=== PATIENT | female | born 2005 | race Caucasian/White ===

== ENCOUNTER 2023-08-11 16:22 | Emergency (ER) | payer BC, SELFPAY ==
[2023-08-11 16:28] VITALS: BP 143/98
[2023-08-11 16:43] LABS: % Basophils 0.8 % (0-2); % Eosinophils 2.2 % (0-6); % Immature Granulocytes 0.3 % (0-0.5); % Lymphocytes 37.7 % (20.5-51.1); % Monocytes 6.4 % (1.7-9.3); % Neutrophils 52.6 % (42.2-75.2); Absolute Basophils 0.1 10^3/uL (0-0.2); Absolute Eosinophils 0.2 10^3/uL (0-0.7); Absolute Lymphocytes 3.3 10^3/uL (1.2-3.4); Absolute Monocytes 0.6 10^3/uL (0.1-0.6); Absolute Neutrophils 4.6 10^3/uL (1.4-6.5); Hemoglobin 13.4 g/dL (12.0-16.0); Mean Corp Hgb Conc. 34.4 g/dL (33.0-37.0); Mean Corpuscular Hgb 28.4 pg (27.0-31.0); Mean Corpuscular Volume 82.6 fL (81.0-99.0); Mean Platelet Volume 8.6 fL (7.4-10.4); Nucleated Red Blood Cells % 0 %; Platelet Count 347 10^3/uL (130-400); Red Blood Cell Count 4.72 10^6/uL (4.20-5.40); White Blood Cell Count 8.8 10^3/uL (4.8-10.8)
[2023-08-11 16:54] LABS: HCG, Serum Qualitative Screen Negative
[2023-08-11 17:20] LABS: ALT (SGPT) 13 U/L (0-35); AST (SGOT) 20 U/L (14-36); Albumin 4.5 g/dl (3.5-5.0); Alkaline Phosphatase 55 U/L (38-126); Blood Urea Nitrogen 10 mg/dl (7-17); Calcium 9.7 mg/dl (8.4-10.2); Carbon Dioxide 26 mmol/L (22-30); Chloride 102 mmol/L (98-107); Glucose 98 mg/dl (70-99); Potassium 4.5 mmol/L (3.5-5.1); Sodium 138 mmol/L (135-145); Total Bilirubin 0.7 mg/dl (0.2-1.3); Total Protein 7.5 g/dl (6.3-8.2); eGFR > 60.00
[2023-08-11 20:09] VITALS: BP 126/88
--- NOTE | 2023-08-11 20:56 | ED.GENMED ---
History of Present Illness
General
Chief Complaint: Weakness
Source: patient and family
Time Seen by Provider: 08/11/23 20:04
Travel History
Have you had any contact with someone who has COVID-19?: No
Do you have any symptoms of coronavirus? Fever > 100 degrees, chills, cough, shortness of breath, sore throat, loss of taste or smell, muscle aches, or headache?: No
History of Present Illness
History of Present Illness:
This patient is a 17-year-old female with a very complex prior medical history. 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 She had an occipital to C3 fusion decompression in November in [place]. Then, by April, she was
noticing that she was having intense 'burning in the inner aspect of her bilateral arms with activity associated with discomfort in thenar eminence while writing. She has had an extensive workup regarding this including EMG, revisit with her
surgeon, etc. without a specific etiology noted at this time. Patient has a variety of other somewhat subacute/chronic symptoms including upper back pain noted only while upright. Yesterday however she noted leg discomfort described as a 'achy'
pain specifically in her bilateral hip knees and ankles. This is not associated with bowel or bladder incontinence perianal anesthesia, numbness, tingling, weakness, fever, chills, nausea, vomiting, falls, chest pain, dyspnea, or other complaints.
She feels that the symptoms are only present when she tries to stand or walk, and she feels better when she sits down.
Past History
Past History
ED Past Medical History: Other (EDS)
ED Past Surgical History: Orthopedic
Social History
Tobacco: Non-smoker
Alcohol: None
Drug: None
Personal: Single
Living: with family
Phy Exam
Physical Exam
Physical Exam:
GENERAL: Alert , in no apparent distress, very pleasant
EYE: pupils equal and reactive
NECK: Supple, no significant adenopathy, midline incision well-healed.
ENT: o/p clr, mmm, voice clear.
CARDIAC: Regular rate and rhythm .
LUNGS: Clear breath sounds bilaterally, no acute respiratory distress, no wheezes/rales/rhonchi
ABDOMEN: Soft, without focal tenderness, no r/g, no cvat
NEUROLOGICAL: Alert and oriented, no focal neuro deficits, 2+ patellar reflexes, normal gait, motor 5 out of 5, sensory intact to light touch
SKIN: Warm and dry, skin intact.
MUSCULOSKELETAL: No edema, well perfused. Lower extremity joints without redness swelling tenderness to palpation or other abnormalities
PSYCH: Normal and appropriate interaction.
Course
Orders/Labs/Results
Orders:
Orders
08/11/23 16:32
Test Result ONCE
08/11/23 16:38
Complete Blood Count/With Diff Urgent
Comprehensive Metabolic Panel Urgent
HCG, Serum Qualitative Screen Urgent
08/11/23 20:46
CT Cervical Spine W/o Iv Contr Urgent
Comment:
Reason For Exam: hx spinal surgery
08/11/23 21:16
CR Thoracic Spine 3 Views Urgent
Reason For Exam: eds, pain
08/11/23 21:42
CR Chest - 2 Views Urgent
Comment:
Reason For Exam: PAIN
Abnormal Lab Results
08/11/23
16:38
Creatinine 0.5 L mg/dL
(0.6-1.0)
08/11/23 16:38
08/11/23 16:38
Vital Signs
Initial and Last Documented VS:
Initial Vital Signs
Pulse Resp BP Pulse Ox
110 16 143/98 98
08/11/23 16:28 08/11/23 16:28 08/11/23 16:28 08/11/23 16:28
Last Documented Vital Signs
Pulse Resp BP Pulse Ox
83 23 106/72 98
08/12/23 00:03 08/11/23 20:30 08/12/23 00:03 08/12/23 00:03
*Critical Care Note
Total Time (30-74mins, 75-104mins- exclusive of procedures): Not Applicable
Update Note
Update Note:
Patient presents to the Emergency Department with ____bilateral lower extremity joint pain
Number and Complexity of Problems Addressed at the Encounter
� Chronic conditions affecting care:
� Acute Exacerbation and/or Progression of Chronic Illness:
� Differential Diagnosis includes: But not limited to infectious arthritis, inflammatory arthritis, spinal injury, etc.
Amount and/or Complexity of Data to be Reviewed and Analyzed
� I performed an independent evaluation of and my interpretation is:
EKG:
CT: Unremarkable, incidental thyroid nodule patient and mother already aware
Xrays: T-spine and chest x-ray unremarkable
Laboratory Studies: Unremarkable
Other:
� Review of other/old records reveals:
� Clinical information was obtained by an independent historian: Mother who is at bedside
� Prescriptions/Medications Considered but not given:
� Further testing considered but not performed:
Risk of Complications and/or Morbidity or Mortality of Patient Management
� Social determinants of health affecting care:
� Discussion with other providers (PCP, Hospitalists, Consultants, etc):
� Escalation of care including admission/observation vs risk of discharge considered: 8:59 PM Case discussed with Dr. Bennett the ED, patient well-known to him and he referred patient to the ER. He was very reassured to learn that
patient does not exhibit numbness, tingling, focal weakness, and reflexes are normal. Her joints do not have signs or symptoms to suggest infection such as redness, swelling, tenderness to palpation, etc. Labs are normal here. We mutually agree
that a CAT scan of the cervical spine will be helpful in ruling out other acute etiology for her symptoms and the normal limits patient can be safely referred for outpatient follow-up.
Patient remains well-appearing here, no symptoms currently. Mom at bedside. Long discussion with them regarding importance of close follow-up as early as tomorrow, especially given the complexity of her prior illness. Do not currently suspect an
acute spinal cord impingement/disease given her exam here. She does not demonstrate weakness, bowel or bladder incontinence, reflexes are normal, etc. Discussed with them importance of follow-up and reasons to return to the ER.
ED Attending Note
-
Portions of this chart may have been created with voice recognition software.� Occasional wrong word or��sound alike� substitutions may have occurred due to the inherent limitations of voice recognition software.
Discharge Plan
Departure
Patient Disposition: Home (Routine Discharge)
Date of Disposition: 08/11/23
Time of Disposition: 23:32
Patient with high blood pressure during this ER visit?: Yes
Condition: Good
Discharge Problem:
Leg pain
Instructions: General (DC), BLOOD PRESSURE
Prescriptions:
No Action
albuterol sulfate [Proventil HFA] 90 MCG/PUFF HFA aerosol inhaler
2 puff inhalation Q4HPRN PRN (Reason: shortness of breath) Qty: 1 0RF
azithromycin 250 MG tablet
250 mg PO Daily Qty: 6 0RF
Rx Instructions:
Day 1: 500 mg po x 1
Day 2-5: 250 mg po daily
Disp: 6 tabs
cefprozil [Cefzil] 250 MG tablet
250 mg PO BID Qty: 14 0RF
Referrals:
UNKNOWN - PT DOES,NOT KNOW [Unknown Provider] -
Activity Restrictions/Additional Instructions:
PLEASE FOLLOW-UP WITH YOUR DOCTORS TOMORROW INCLUDING THE EDS DOCTOR. IF YOU DEVELOP FEVER, CHILLS, NUMBNESS, INCONTINENCE, WEAKNESS, DIFFICULTY WALKING, HEADACHE, VOMITING, OR OTHER WORRISOME SIGNS, PLEASE RETURN TO THE ER IMMEDIATELY.
Interventions
Interventions:
*Risk Screen - Suicide Last Done: 08/11/23 16:28
*General Assessment Last Done: 08/11/23 16:28
*Neglect/Abuse Screening Last Done: 08/11/23 21:10
ED- Fall Risk Assessment Last Done: 08/12/23 00:03
*ED COVID-19 Vaccine History Last Done: 08/11/23 16:28
*Nursing Disposition Last Done: 08/12/23 00:03
ED- Cardiac Assessment Last Done: 08/11/23 21:11
ED- Neurological Assessment Last Done: 08/11/23 21:11
ED- Pulmonary Assessment Last Done: 08/11/23 21:11
Discharge Date and Time
Discharge Date/Time: 08/12/23 00:04
[2023-08-12 00:03] VITALS: BP 106/72
== END 2023-08-12 00:04 | disposition home or self-care (01) ==
LOC: EMR 16:22
PROVIDERS: Student in an Organized Health Care Education/Training Program; EMERGENCY PHYSICIAN Emergency Medicine; FAMILY PHYSICIAN Family Medicine
DX: M79.605 Pain in left leg (principal); M79.604 Pain in right leg; Q79.61 Classical Ehlers-Danlos syndrome; G93.5 Compression of brain
CPT/HCPCS: 99285; 71046; 72072; 72125; 80053; 84703; 85025

== ENCOUNTER → 2023-08-12 17:04 | Outpatient (REF) | payer BC, SELFPAY | LOC: RAD 17:04 | PROVIDERS: ATTENDING PHYSICIAN Pediatrics Sports Medicine; FAMILY PHYSICIAN Family Medicine | DX: M25.579 Pain in unspecified ankle and joints of unspecified foot (principal); M25.559 Pain in unspecified hip; M25.569 Pain in unspecified knee; M54.6 Pain in thoracic spine | CPT/HCPCS: 72072; 73522; 73560; 73565; 73610 ==

== ENCOUNTER → 2023-08-20 08:29 | Outpatient (REF) | payer BC, SELFPAY | LOC: MRI 08:29 | PROVIDERS: ATTENDING PHYSICIAN Pediatrics Sports Medicine; FAMILY PHYSICIAN Family Medicine | DX: R53.1 Weakness (principal); M79.606 Pain in leg, unspecified | CPT/HCPCS: 72148 ==

== ENCOUNTER → 2023-10-02 07:46 | Outpatient (REF) | payer BC, SELFPAY | LOC: MRI 07:46 | PROVIDERS: ATTENDING PHYSICIAN Pediatrics Sports Medicine; FAMILY PHYSICIAN Family Medicine | DX: M54.14 Radiculopathy, thoracic region (principal) | CPT/HCPCS: 72146 ==

== ENCOUNTER 2024-01-03 14:04 | Emergency (ER) | payer BC, SELFPAY ==
[2024-01-03 14:07] VITALS: BP 126/83
--- NOTE | 2024-01-03 15:10 | ED.GENMED ---
History of Present Illness
<Caron Warner PA-C - Last Filed: 01/03/24 18:13>
General
Chief Complaint: Headache
Source: patient
Exam Limitations: none
Time Seen by Provider: 01/03/24 15:06
Nursing documentation reviewed up to this point in time: agreed with
History of Present Illness
History of Present Illness:
This is a 18 y/o female with a pmh of Elhers Danlos Syndrome, tethered cord syndrome, presenting emergency department today with concerns of a headache and blurry vision. Patient reports that this started 2 days ago. Patient reports that this
started with anterior neck pain and then the neck pain went away and then she started to develop pain in her jaw bilaterally which radiated into a temporal headache. Patient describes her visual changes and the blurred vision and extreme fatigue
and eyestrain when reading. Patient states that she is currently a student states that due to her current symptoms, she is not able to read or complete her schoolwork. Patient states that she has been trying Tylenol at home without relief.
Patient states that she has had a similar headache before but it resolved sooner and on its own. Patient states that she had a similar headache a few years ago and was seen here. Patient never received a formal diagnosis of migraine disorder.
Patient is not taking medications for migraine. Patient denies any neck pain, any remaining neck pain, any dizziness, lightheadedness, syncopal episodes, chest pain, shortness of breath. Patient has a hx of spinal fusion and chiari malformation
repair from base of the skull to the level of C3, and a history of repair of tethered cord syndrome 4 weeks ago from the level L5-S1. She called her neurosurgeon who advised her to report to the emergency department for imaging of her hardware.
Past History
<Caron Warner PA-C - Last Filed: 01/03/24 18:13>
Past History
ED Past Medical History: Other (EDS)
ED Past Surgical History: Orthopedic
Social History
Tobacco: Non-smoker
Alcohol: None
Drug: None
Personal: Single
Living: with family
Review of Systems
<Caron Warner PA-C - Last Filed: 01/03/24 18:13>
Review of Systems
All Other Systems: ROS reviewed and negative except as documented in HPI and ROS
Phy Exam
<Caron Warner PA-C - Last Filed: 01/03/24 18:13>
Physical Exam
Physical Exam:
General: Patient is well appearing and in no acute distress; non-toxic
Skin: Warm and dry, no rashes or lesions
Head: Normocephalic, atraumatic. No temporal artery tenderness.
Eyes: Sclera non-icteric. EOMs intact. PERRLA.
Cardiac: Tachycardia otherwise regular rhythm, no murmurs
Peripheral Vascular: No lower extremity swelling or edema
Pulm: Normal respiratory effort, no wheezes, rales, or rhonchi
Musculoskeletal: TMJ joints intact bilaterally.
Neuro: CN II-XII intact, no focal neurologic deficits.
Psychiatric: Appropriate mood and affect.
Course
<Caron Warner PA-C - Last Filed: 01/03/24 18:13>
Orders/Labs/Results
Orders:
Orders
01/03/24 15:48
Visual Acuity- Treatment ONCE
0.9% Sodium Chloride 1000 ml [Nss] 1,000 ml IV BOLUS
01/03/24 16:00
Diphenhydramine [Benadryl] 25 mg IV NOW STA
Ketorolac [Toradol] 15 mg IV NOW STA
01/03/24 16:01
Metoclopramide [Reglan] 10 mg IV NOW STA
01/03/24 16:08
Complete Blood Count/With Diff Urgent
Comprehensive Metabolic Panel Urgent
01/03/24 16:17
CR Cervical Sp 6/+ (flex/ext) Urgent
Comment:
Reason For Exam: headache, neck pain
01/03/24 17:31
CT Head W/o Iv Contrast Urgent
Comment:
Reason For Exam: persistent headache, visual changes
01/03/24 17:33
Acetaminophen [Tylenol] 1,000 mg PO NOW STA
01/03/24 18:24
CT Cervical Spine W/o Iv Contr Urgent
Comment:
Reason For Exam: pain worsening prior surgery
01/03/24 19:15
Rizatriptan Orally Disintegrat [Maxalt Wire Transfer Clerk (Orally Disintegrating)] 10 mg PO ONCE ONE
01/03/24 19:16
Ketorolac [Toradol] 15 mg IV NOW STA
Abnormal Lab Results
01/03/24
16:08
Absolute Neuts (auto) 6.7 H 10^3/uL
(1.4-6.5)
Carbon Dioxide 21 L mmol/L
(22-30)
BUN 6 L mg/dl
(7-17)
Creatinine 0.4 L mg/dL
(0.6-1.0)
Glucose 107 H mg/dl
(70-99)
01/03/24 16:08
01/03/24 16:08
Vital Signs
Initial and Last Documented VS:
Initial Vital Signs
Temp Pulse Resp BP Pulse Ox
98.5 F 106 20 126/83 99
01/03/24 14:07 01/03/24 14:07 01/03/24 14:07 01/03/24 14:07 01/03/24 14:07
Last Documented Vital Signs
Temp Pulse Resp BP Pulse Ox
98.5 F 106 20 110/72 99
01/03/24 14:07 01/03/24 14:07 01/03/24 14:07 01/03/24 16:00 01/03/24 14:07
<Antonino Kaufman, DO - Last Filed: 01/03/24 19:17>
Orders/Labs/Results
Orders:
Orders
01/03/24 15:48
Visual Acuity- Treatment ONCE
0.9% Sodium Chloride 1000 ml [Nss] 1,000 ml IV BOLUS
01/03/24 16:00
Diphenhydramine [Benadryl] 25 mg IV NOW STA
Ketorolac [Toradol] 15 mg IV NOW STA
01/03/24 16:01
Metoclopramide [Reglan] 10 mg IV NOW STA
01/03/24 16:08
Complete Blood Count/With Diff Urgent
Comprehensive Metabolic Panel Urgent
01/03/24 16:17
CR Cervical Sp 6/+ (flex/ext) Urgent
Comment:
Reason For Exam: headache, neck pain
01/03/24 17:31
CT Head W/o Iv Contrast Urgent
Comment:
Reason For Exam: persistent headache, visual changes
01/03/24 17:33
Acetaminophen [Tylenol] 1,000 mg PO NOW STA
01/03/24 18:24
CT Cervical Spine W/o Iv Contr Urgent
Comment:
Reason For Exam: pain worsening prior surgery
01/03/24 19:15
Rizatriptan Orally Disintegrat [Maxalt Wire Transfer Clerk (Orally Disintegrating)] 10 mg PO ONCE ONE
01/03/24 19:16
Ketorolac [Toradol] 15 mg IV NOW STA
Abnormal Lab Results
01/03/24
16:08
Absolute Neuts (auto) 6.7 H 10^3/uL
(1.4-6.5)
Carbon Dioxide 21 L mmol/L
(22-30)
BUN 6 L mg/dl
(7-17)
Creatinine 0.4 L mg/dL
(0.6-1.0)
Glucose 107 H mg/dl
(70-99)
01/03/24 16:08
01/03/24 16:08
Vital Signs
Initial and Last Documented VS:
Initial Vital Signs
Temp Pulse Resp BP Pulse Ox
98.5 F 106 20 126/83 99
01/03/24 14:07 01/03/24 14:07 01/03/24 14:07 01/03/24 14:07 01/03/24 14:07
Last Documented Vital Signs
Temp Pulse Resp BP Pulse Ox
98.5 F 106 20 110/72 99
01/03/24 14:07 01/03/24 14:07 01/03/24 14:07 01/03/24 16:00 01/03/24 14:07
Esalt;Caron Warner PA-C - Last Filed: 01/03/24 18:13>
MDM/Problems Addressed
Differential Diagnosis Includes:
ddx include cervical stenosis, tension headache, migraine headache, TMJ syndrome, occipital neuralgia
MDM/Problems Addressed:
Headache, blurry vision:
This is a 18 y/o female with a pmh of Elhers Danlos Syndrome, tethered cord syndrome, presenting emergency department today with concerns of a headache and blurry vision. Patient reports that this started 2 days ago. Patient reports that this
started with anterior neck pain and then the neck pain went away and then she started to develop pain in her jaw bilaterally which radiated into a temporal headache. Patient describes her visual changes and the blurred vision and extreme fatigue
and eyestrain when reading. Patient has had headaches similar to this in the past but the visual changes has never been this severe before and the headache is never lasted as long. Here in emergency department, patient's vitals are stable, she is
peers well, and her neurologic exam is unremarkable, she has no focal deficits. Patient was treated with Toradol, Reglan, and Benadryl. Cervical spine imaging was obtained which was negative for any acute changes, her hardware was intact.
Reassessment, patient did not feel much improvement with this treatment. Patient is then given Tylenol.
6:12 pm-- awaiting CT results, care transferred to Dr. Kaufman.
Chronic conditions affecting care:
elhers danlos syndrome
Acute Exacerbation and/or Progression of Chronic Illness:
elhers danlos syndrome
<Caron Warner PA-C - Last Filed: 01/03/24 18:13>
*Pulse Oximetry
Patient hypoxic: no
*Critical Care Note
Total Time (30-74mins, 75-104mins- exclusive of procedures): Not Applicable
Data Reviewed
Review of Other/Old Records Reveals: Records (reviewed er physician documentation from 2020 where patient was seen for similar symptoms ) and Radiology Studies (reviewed previous head CT )
Source: patient and records
<Caron Warner PA-C - Last Filed: 01/03/24 18:13>
Update Note
Update Note:
5:30 pm-- patient does not note a significant improvement in her symptoms; will add on Tylenol and obtain head CT
6:11 pm-- care transferred to Dr. Kaufman
<Antonino Kaufman DO - Last Filed: 01/03/24 19:17>
Update Note
Update Note:
5:30 pm-- patient does not note a significant improvement in her symptoms; will add on Tylenol and obtain head CT
6:11 pm-- care transferred to Dr. Kaufman
On reassessment at 7:15 PM, the patient feels somewhat improved but would like to try something additional. She states that she was recommended to try Maxalt which she has not had in the past (this was a year ago). This was recommended by her
neurosurgery group at [place]. Will give a dose of Maxalt and try another round of Toradol. CT imaging personally reviewed.
ED Attending Note
<Caron Warner PA-C - Last Filed: 01/03/24 18:13>
-
Portions of this chart may have been created with voice recognition software.� Occasional wrong word or��sound alike� substitutions may have occurred due to the inherent limitations of voice recognition software.
<Antonino Anderson DO Mandeep - Last Filed: 01/03/24 19:17>
ED Attending Note
Patient seen and examined by attending physician: Yes
I performed the substantive portion of visit, reviewed & personally made and approve the management plan that is documented in note by myself or DILSHAD.: Yes
I performed a history and physical exam of patient and discussed management with resident, I reviewed resident's note and agree with documented findings and plan of care.: Yes
ED Attending Note:
I evaluated patient at bedside. She does have some vision changes without significant photophobia. This did not feel exactly like prior migraine. We are trying Reglan/Benadryl with Toradol and will reassess. She does have a history of cervical
spine surgery related to Agapito-Danlos and currently has hardware. Her neurosurgeon recommended plain film imaging with flexion-extension views.
Discharge Plan
Departure
Prescriptions:
No Action
albuterol sulfate [Proventil HFA] 90 MCG/PUFF HFA aerosol inhaler
2 puff inhalation Q4HPRN PRN (Reason: shortness of breath) Qty: 1 0RF
azithromycin 250 MG tablet
250 mg PO Daily Qty: 6 0RF
Rx Instructions:
Day 1: 500 mg po x 1
Day 2-5: 250 mg po daily
Disp: 6 tabs
cefprozil [Cefzil] 250 MG tablet
250 mg PO BID Qty: 14 0RF
Referrals:
Ayush العلي MD [Family Provider] -
Interventions
Interventions:
*Risk Screen - Suicide Last Done: 01/03/24 14:07
*General Assessment Last Done: 01/03/24 14:07
*Neglect/Abuse Screening Last Done: 01/03/24 14:07
ED- Fall Risk Assessment Last Done: 01/03/24 16:42
ED- Neurological Assessment Last Done: 01/03/24 16:42
Discharge Date and Time
Print Language: AMERICAN
[2024-01-03 16:00] VITALS: BP 110/72
[2024-01-03] MEDS: TORADOL 15 MG IV ×2 (16:28→19:35)
[2024-01-03] MEDS: BENADRYL 25 MG IV (16:29)
[2024-01-03] MEDS: NSS 1000 IV (16:29)
[2024-01-03 16:32] LABS: % Basophils 0.5 % (0-2); % Eosinophils 1.2 % (0-6); % Immature Granulocytes 0.4 % (0-0.5); % Lymphocytes 26.2 % (20.5-51.1); % Monocytes 6.3 % (1.7-9.3); % Neutrophils 65.4 % (42.2-75.2); Absolute Basophils 0.1 10^3/uL (0-0.2); Absolute Eosinophils 0.1 10^3/uL (0-0.7); Absolute Lymphocytes 2.7 10^3/uL (1.2-3.4); Absolute Monocytes 0.6 10^3/uL (0.1-0.6); Absolute Neutrophils 6.7 10^3/uL (1.4-6.5); Hematocrit 40.5 % (37.0-47.0); Hemoglobin 13.6 g/dL (12.0-16.0); Mean Corp Hgb Conc. 33.6 g/dL (33.0-37.0); Mean Corpuscular Hgb 28.3 pg (27.0-31.0); Mean Corpuscular Volume 84.2 fL (81.0-99.0); Mean Platelet Volume 9.2 fL (7.4-10.4); Nucleated Red Blood Cells % 0 %; Platelet Count 326 10^3/uL (130-400); Red Blood Cell Count 4.81 10^6/uL (4.20-5.40); Red Cell Dist. Width 12.7 % (11.5-14.5); White Blood Cell Count 10.2 10^3/uL (4.8-10.8)
[2024-01-03] MEDS: REGLAN 10 MG IV (16:33)
[2024-01-03 16:56] LABS: ALT (SGPT) 15 U/L (0-35); AST (SGOT) 30 U/L (14-36); Albumin 4.9 g/dl (3.5-5.0); Alkaline Phosphatase 64 U/L (38-126); Blood Urea Nitrogen 6 mg/dl (7-17); Carbon Dioxide 21 mmol/L (22-30); Chloride 105 mmol/L (98-107); Glucose 107 mg/dl (70-99); Potassium 4.3 mmol/L (3.5-5.1); Sodium 139 mmol/L (135-145); Total Bilirubin 0.7 mg/dl (0.2-1.3); Total Protein 7.8 g/dl (6.3-8.2); eGFR > 60.00
[2024-01-03] MEDS: TYLENOL 1000 MG PO (17:52)
[2024-01-03] MEDS: MAXALT MLT (ORALLY DISINTEGRATING) 10 MG PO (19:35)
[2024-01-03 20:32] VITALS: BP 108/70
== END 2024-01-03 20:40 | disposition home or self-care (01) ==
LOC: EMR 14:04
PROVIDERS: Physician Assistant; EMERGENCY PHYSICIAN Emergency Medicine; FAMILY PHYSICIAN Family Medicine
DX: R07.0 Pain in throat (principal); R51.9 Headache, unspecified; H53.8 Other visual disturbances; M54.2 Cervicalgia; R68.84 Jaw pain; R53.83 Other fatigue; Q06.8 Other specified congenital malformations of spinal cord; Q79.60 Ehlers-Danlos syndrome, unspecified; K90.0 Celiac disease; Z98.1 Arthrodesis status; Z88.2 Allergy status to sulfonamides; Z91.018 Allergy to other foods; Z91.048 Other nonmedicinal substance allergy status; J45.909 Unspecified asthma, uncomplicated
CPT/HCPCS: 99284; 96374; 96375 ×2; 96361; 96376; 70450; 72052; 72125; 80053; 85025

== ENCOUNTER → 2024-01-12 12:34 | Outpatient (REF) | payer BC, SELFPAY | LOC: HWRAD 12:34 | PROVIDERS: ATTENDING PHYSICIAN Physician Assistant | DX: M94.0 Chondrocostal junction syndrome [Tietze] (principal) | CPT/HCPCS: 71250; 74150 ==

== ENCOUNTER 2024-01-25 05:38 | Emergency (ER) | payer BC, SELFPAY ==
[2024-01-25] VITALS (16 sets, daily range): BP systolic 121–142; BP diastolic 73–106; BMI 23.8
--- NOTE | 2024-01-25 06:52 | ED.GENMED ---
History of Present Illness
General
Chief Complaint: Abdominal Symptoms
Source: patient and other (Mother)
Exam Limitations: none
Time Seen by Provider: 01/25/24 06:26
History of Present Illness
History of Present Illness:
See MDM
Past History
Past History
ED Past Medical History: Other (EDS)
ED Past Surgical History: Orthopedic
Social History
Tobacco: Non-smoker
Alcohol: None
Drug: None
Personal: Single
Living: with family
Phy Exam
Physical Exam
Physical Exam:
See MDM
Course
Orders/Labs/Results
Orders:
Orders
01/25/24 06:45
0.9% Sodium Chloride 1000 ml [Nss] 1,000 ml IV BOLUS
Iohexol [Omnipaque] See Protocol PO NOW STA
01/25/24 06:47
CT Abd/pel (oral only)-DH Only Urgent
Comment:
Reason For Exam: General abd pain, fevers
01/25/24 06:49
Test Result ONCE
01/25/24 06:50
Lorazepam [Ativan] 0.5 mg IV NOW STA
01/25/24 06:51
Diphenhydramine [Benadryl] 50 mg IV NOW STA
Hydrocortisone Sod Succinate [Solu-Cortef] 200 mg IV NOW STA
Ketorolac [Toradol] 15 mg IV NOW STA
01/25/24 06:58
CR Chest - 2 Views Urgent
Comment:
Reason For Exam: SOB
01/25/24 07:38
Complete Blood Count/With Diff Urgent
Monotest Urgent
TSH Reflex To Free T4 Urgent
01/25/24 07:39
Comprehensive Metabolic Panel Urgent
HCG, Serum Qualitative Screen Urgent
Lactic Acid Q4H
Comment: CANCEL 2nd LACTIC ACID IF 1st LACTIC ACID IS LESS THAN 2
Lipase Urgent
Comment: ADD ON
Blood Culture Urgent
WANG Source: Blood/Venous
Specimen Description:
01/25/24 08:50
COVID-19 Antigen Urgent
Source: Nasal Swab
Urinalysis Reflex To Culture Urgent
Date Specimen was Collected: 01/25/24
Time Specimen was Collected: 06:54
Urine Microscopic Reflex Cult Urgent
Influenza A+B Rapid Molecular Urgent
WANG Source: Nasal Swab
Specimen Description:
01/25/24 09:57
Add On- LAB Urgent
Tests Added?: Lipase
01/25/24 11:29
Lactic Acid Q4H
Comment: CANCEL 2nd LACTIC ACID IF 1st LACTIC ACID IS LESS THAN 2
Abnormal Lab Results
01/25/24 01/25/24 01/25/24
07:38 07:39 08:50
Abs Immat Gran (auto) 0.1 H 10^3/uL
(0-0.05)
Absolute Neuts (auto) 6.8 H 10^3/uL
(1.4-6.5)
Immature Gran % 1.4 H %
(0-0.5)
Lymphocytes % 18.9 L %
(20.5-51.1)
BUN 6 L mg/dl
(7-17)
Creatinine 0.5 L mg/dL
(0.6-1.0)
Glucose 110 H mg/dl
(70-99)
Lactic Acid 2.2 H mmol/L
(0.7-2.0)
Leukocyte Esterase Rfl Trace A
(Negative)
Urine Bacteria (Reflex) Few A
(Negative)
01/25/24 07:38
01/25/24 07:39
Vital Signs
Initial and Last Documented VS:
Initial Vital Signs
Temp Pulse Resp BP Pulse Ox
98.7 F 126 26 140/96 98
01/25/24 05:49 01/25/24 05:49 01/25/24 05:49 01/25/24 05:49 01/25/24 05:49
Last Documented Vital Signs
Temp Pulse Resp BP Pulse Ox
97.5 F 111 23 122/73 96
01/25/24 12:36 01/25/24 12:36 01/25/24 12:36 01/25/24 12:36 01/25/24 12:36
MDM/Problems Addressed
Differential Diagnosis Includes:
HPI and MDM Narrative:
18-year-old female presenting with mother with multiple complaints. Patient planing of headache, blurry vision, subjective fevers and rib pain and abdominal pain. Patient has a history of Erler's Danlos syndrome. She is followed at [place]. Due to
her headache and blurry vision, she received MRI brain and spine at [place]. She was called back to [place] for further assessment of a fluid collection seen in the spine. They performed a lumbar puncture and admitted her with presumed meningitis. They
placed her on steroids and antibiotics. The antibiotics were discontinued once the culture was negative, per mother. She was discharged on a short steroid pack. It was recently finished and all of her symptoms have worsened.
In regards to the headache and blurry vision, this appears to be similar to her prior episode where she has already received an MRI. We did discuss the possibility of a CSF leak. This was discussed at [place] already and anesthesiology would not
perform a blood patch due to the ongoing inflammation of her spine.
In regards to her tachycardia, chest discomfort and shortness of breath, I suggested the possibility of PE. Patient has no leg swelling or leg pain and states that they already performed CT at [place] to rule out PE.
In regards to her abdominal discomfort, we discussed possible viral infection but will obtain CT to rule out any surgical or infectious etiology.
Physical exam
General: Well appearing and non-toxic
HEENT: protecting airway
Neck: supple. No meningismus
CV: No evidence of cyanosis. Tachycardic and regular
Resp: No accessory muscle use. Lungs clear
Abd: Non-distended. Very mild midepigastric and periumbilical tenderness. No rebound
Extremities: No deformities. No leg edema or tenderness
Neuro: alert. No focal deficits
Psych: Mildly anxious
Skin: Intact
Problems Addressed including Acute and Chronic Conditions affecting care:
1. Headache and blurry vision
Acuity: acute
Prognosis: stable
Details: Given recent LP and recent MRI, doubt infectious etiology. She potentially has a CSF leak but understands that she is not a great candidate for blood patching
2. Shortness of breath
Acuity: acute
Prognosis: stable
Details: Potentially related to anxiety. Regardless, will obtain chest x-ray. Mother states she was already ruled out for [facility]
3. Abdominal pain
Acuity: acute
Prognosis: stable
Details: Will obtain CT abdomen/pelvis. Given iodine allergy, will pretreat with Benadryl and steroids
Updates
Patient found to have mildly elevated lactic acid. Although patient afebrile here, she complains of fevers at home. Patient has remained tachycardic in the emergency department. Will continue IV fluids. Workup is negative for infectious etiology
in regards to chest x-ray and abdominal CT and urinalysis. Will admit for fluids and pending blood cultures
Admitting hospitalist and patient now suggesting transfer to [facility]
Case initially discussed with [place] neurology Dr. Duncan who suggested ER to ER transfer where they can evaluate in person. Case accepted by ER physician Dr. Alvarez
Differential Diagnosis (but not limited to): Viral syndrome, CSF leak, gastritis, mono, colitis
Testing considered: Repeat CT head
Drug therapy (if applicable): OTC meds, please see d/c instruction regarding Rx drugs
Amount and/or Complexity of Data Reviewed
Clinical info obtained from: Patient. Mother states recent LP that was negative for infectious etiology
External data reviewed: N/A
Labs I independently reviewed (but not limited to): Elevated lactic acid
Radiology: X-ray independently reviewed: Chest x-ray clear
The CT scan was personally and independently reviewed. In addition, official CT report reviewed.
Pulse Ox: not hypoxic
EKG independently reviewed: N/A
Link Fabric Machine Operator: N/A
Critical Care: N/A
Risk of Complication:
Social Determinants of health: Good social support
Discussed with other providers: Hospitalist
Escalation of Care includes Admit/Obs: Given the persistent tachycardia, headache and blurry vision, will transfer to [place] where her care as well known
Occasional wrong word or 'sound a like' substitutions may have occurred due to the inherent limitations of voice recognition software. Read the chart carefully and recognize, using context, where substitutions have occurred.
*Critical Care Note
Total Time (30-74mins, 75-104mins- exclusive of procedures): Not Applicable
ED Attending Note
-
Portions of this chart may have been created with voice recognition software.� Occasional wrong word or��sound alike� substitutions may have occurred due to the inherent limitations of voice recognition software.
Discharge Plan
Departure
Patient Disposition: Acute Care Hospital
Date of Disposition: 01/25/24
Time of Disposition: 10:22
Discharge Problem:
Tachycardia, Fever and chills, Headache, Blurred vision
Prescriptions:
No Action
acetaminophen [Tylenol Extra Strength] 500 mg Tablet
1,000 mg PO Q6HPRN PRN (Reason: mild pain)
diphenhydramine HCl [Benadryl] 25 mg Capsule
25 mg PO HSPRN PRN (Reason: allergy)
albuterol sulfate [Proventil HFA] 90 MCG/PUFF HFA aerosol inhaler
2 puff inhalation R Q4HPRN PRN (Reason: shortness of breath)
Referrals:
Ayush العلي MD [Family Provider] -
Hospital Transfer
Other hospital: [facility]
I certify that the patient requires transfer: Yes
Discussed case with accepting physician: Dr. Alvarez
Reason for transfer: specialties available and continuity of care PCP
Interventions
Interventions:
*Risk Screen - Suicide Last Done: 01/25/24 05:49
*General Assessment Last Done: 01/25/24 06:27
*Neglect/Abuse Screening Last Done: 01/25/24 05:49
ED- Fall Risk Assessment Last Done: 01/25/24 06:27
*ED COVID-19 Vaccine History Last Done: 01/25/24 06:27
RG-Yzixsc-Sepgxlanou Assessment Last Done: 01/25/24 06:27
Discharge Date and Time
Print Language: CYMRAES
--- NOTE | 2024-01-25 07:17 | EDRN ---
IV team here to place line and draw blood
[2024-01-25] MEDS: BENADRYL 50 MG IV (07:42)
[2024-01-25] MEDS: NSS 1000 IV (07:42)
[2024-01-25] MEDS: ATIVAN 0.5 MG IV (07:42)
[2024-01-25] MEDS: OMNIPAQUE 50 ML PO (07:42)
[2024-01-25] MEDS: TORADOL 15 MG IV (07:42)
[2024-01-25 07:49] LABS: % Basophils 0.4 % (0-2); % Eosinophils 0.2 % (0-6); % Immature Granulocytes 1.4 % (0-0.5); % Lymphocytes 18.9 % (20.5-51.1); % Monocytes 5.3 % (1.7-9.3); % Neutrophils 73.8 % (42.2-75.2); Absolute Immature Granulocytes 0.1 10^3/uL (0-0.05); Absolute Lymphocytes 1.8 10^3/uL (1.2-3.4); Absolute Monocytes 0.5 10^3/uL (0.1-0.6); Absolute Neutrophils 6.8 10^3/uL (1.4-6.5); Hematocrit 37.9 % (37.0-47.0); Hemoglobin 12.8 g/dL (12.0-16.0); Mean Corp Hgb Conc. 33.8 g/dL (33.0-37.0); Mean Corpuscular Hgb 27.7 pg (27.0-31.0); Mean Platelet Volume 8.9 fL (7.4-10.4); Nucleated Red Blood Cells % 0 %; Platelet Count 338 10^3/uL (130-400); Red Blood Cell Count 4.62 10^6/uL (4.20-5.40); Red Cell Dist. Width 12.6 % (11.5-14.5); White Blood Cell Count 9.3 10^3/uL (4.8-10.8)
[2024-01-25] MEDS: SOLU-CORTEF 200 MG IV (07:49)
[2024-01-25 08:02] LABS: HCG, Serum Qualitative Screen Negative
[2024-01-25 08:03] LABS: Lactic Acid 2.2 mmol/L (0.7-2.0)
--- NOTE | 2024-01-25 08:03 | EDRN ---
this RN entered the pts room to medicate the pt and the pt stated, 'I have anaphylaxis to contrast so i cannot have it IV, so what are you giving me?', the pts mother then stated, 'What is it that you're giving her right now', this RN stated that
this RN was going to explain the medications before administering them, this RN explained that the pt is going to be pre medicated before drinking oral contrast with medications to help prevent a reactions, the pts mother then asked this RN,
'What's the difference between oral contrast and the contrast that you drink?', this RN explained to the pts mother that oral contrast and the contrast that you can drink is the same thing, the pt was medicated and panicked when Bendaryl was
administered, this RN talked the pt through deep breathing techniques, the pt was able to calm down, the pt is resting in stretcher in the lowest position, side rails up x2, call mccray within reach, HOB elevated, no s/s of distress, sinus tachy in
the 120's, will continue to monitor the pt closely
[2024-01-25 08:04] LABS: ALT (SGPT) 16 U/L (0-35); AST (SGOT) 20 U/L (14-36); Albumin 4.4 g/dl (3.5-5.0); Alkaline Phosphatase 70 U/L (38-126); Blood Urea Nitrogen 6 mg/dl (7-17); Calcium 9.7 mg/dl (8.4-10.2); Carbon Dioxide 27 mmol/L (22-30); Chloride 104 mmol/L (98-107); Estimated Creatinine Clearance 124 ml/min; Glucose 110 mg/dl (70-99); Potassium 4.3 mmol/L (3.5-5.1); Sodium 138 mmol/L (135-145); Total Bilirubin 0.3 mg/dl (0.2-1.3); eGFR > 60.00
[2024-01-25 08:33] LABS: TSH Reflex To Free T4 1.06 uIU/ml (0.47-4.68)
[2024-01-25 09:01] LABS: Urine Albumin Negative (Neg - Trace); Urine Bilirubin Negative (Negative); Urine Character Clear (Clear); Urine Color Yellow; Urine Glucose Negative (Negative); Urine Ketone Negative (Negative); Urine Leukocyte Trace (Negative); Urine Nitrite Negative (Negative); Urine Occult Blood Negative (Negative); Urine Specific Gravity 1.015 (<1.030); Urine Urobilinogen Negative (Neg - 1+)
[2024-01-25 09:09] LABS: Monotest Negative (Negative)
[2024-01-25 09:14] LABS: COVID-19 Antigen Negative (Negative)
--- NOTE | 2024-01-25 09:15 | EDRN ---
the pt pressed the call mccray and this RN entered the pts room, the pt asked to be unhooked from the monitor to use the bathroom, the pt was able to ambulate to the bathroom and back to the stretcher with no issues, this RN placed the pt back on the
monitor and the pt is resting in stretcher in the lowest position, side rails up x1, call mccray within reach, HOB elevated, no s/s of distress, the pt then stated to this RN, 'When are you going to do my other lab work, you didn't do it all yet so
can you do that soon?', this RN asked the pt what blood work she was referring to and the pt stated, 'Well it's standard to do two sets of blood cultures so you can do it now', this RN notified Dr. Bradford about the concerns that the pt and the pts
mother have regarding a second set of blood cultures and per Dr. Bradford only one set of blood cultures was to be drawn, the provider does not want another set of blood cultures at this point in time, the pt has only drank one cup of oral contrast,
this RN has been reminding the pt to keep drinking, the pt is working on the second cup of oral contrast now, will continue to monitor the pt closely
--- NOTE | 2024-01-25 09:45 | EDRN ---
the pt was brought back from CT scan and this RN placed the pt back on the monitor, the pt is still currently tachycardic, blood pressure 121/81 (95), RA Sp02 96%, no c/o chest pain, no c/o SOB, the pts mother stated to this RN, 'did she not get her
xray? she should have gone to xray right from CT scan', this RN stated that when xray is ready for the pt that they would call and notify us and then the pt would be taken to xray, will continue to monitor the pt closely
[2024-01-25 10:56] LABS: Lipase 47 U/L (23-300)
[2024-01-25 11:03] LABS: Urine Amorphous Seen; Urine Squamous Cell 21-25 /LPF (Few)
[2024-01-25 11:05] LABS: Urine Bacteria Few (Negative); Urine Red Blood Cell 0-2 /HPF (0-2)
--- NOTE | 2024-01-25 11:31 | EDRN ---
second lactic drawn and sent, the pts mother asked to speak to the provider regarding the pts second set of blood cultures, Dr. Bradford came to the pts bedside and spoke with the pt and the pts mother and explained that a second set of blood cultures
will not be ordered, the pt is resting in stretcher in the lowest position, side rails up x2, call mccray within reach, HOB elevated, the pt is currently still tachycardic in the 110-120's, no c/o chest pain, no c/o SOB, will continue to monitor the
pt closely
[2024-01-25 11:53] LABS: Lactic Acid 1.2 mmol/L (0.7-2.0)
--- NOTE | 2024-01-25 14:32 | EDRN ---
this RN called the charge nurse at [facility] at [phone] and gave verbal report on the pt
--- NOTE | 2024-01-25 14:34 | EDRN ---
the pts family came out of the pts room and stated that the pt is uncomfortable about being transferred, this RN entered the pts room and the pt stated that she doesn't want to go to [facility] now because she feels uncomfortable and stated that she has
been to [facility] many times and she feels like this is 'disgusting' that she is being sent there, at the same time this RN was in the pts room speaking to the pt and the pts family, Acute Care has arrived, this RN notified Dr. Herrera about the situation
and Dr. Herrera is currently speaking to the pt and the pts family while transport is waiting in the hallway for a decision to be made, the pt also stated that she wants to know if there are other options as far as what other hospitals she can go to,
the pt states that she has a provider at [facility]
--- NOTE | 2024-01-25 14:41 | EDRN ---
Dr. Herrera came out of the pts room and stated that the pt has agreed to go to [place]
--- NOTE | 2024-01-25 14:44 | EDRN ---
transport is getting the pt ready to go to [place], verbal report given to Acute Care Transport
== END 2024-01-25 14:46 | disposition short-term general hospital (02) ==
LOC: EMR 05:38
PROVIDERS: EMERGENCY PHYSICIAN Student in an Organized Health Care Education/Training Program; FAMILY PHYSICIAN Family Medicine
DX: H53.8 Other visual disturbances (principal); R51.9 Headache, unspecified; R50.9 Fever, unspecified; R00.0 Tachycardia, unspecified; R06.02 Shortness of breath; R07.89 Other chest pain; R10.9 Unspecified abdominal pain; R07.81 Pleurodynia; Z11.52 Encounter for screening for COVID-19; Q79.60 Ehlers-Danlos syndrome, unspecified; Z88.1 Allergy status to other antibiotic agents; Z91.041 Radiographic dye allergy status; Z88.2 Allergy status to sulfonamides; Z91.018 Allergy to other foods; Z91.048 Other nonmedicinal substance allergy status
CPT/HCPCS: 99285; 96374; 96375 ×3; 96361; 71046; 74176; 80053; 81003; 81015; 83605; 83690; 84443; 84703; 85025; 86308; 87040; 87502; 87811

== ENCOUNTER → 2024-02-18 08:04 | Outpatient (REF) | payer BC, SELFPAY ==
[2024-02-18 08:56] LABS: % Basophils 0.8 % (0-2); % Eosinophils 1.6 % (0-6); % Immature Granulocytes 2.3 % (0-0.5); % Lymphocytes 41.1 % (20.5-51.1); % Monocytes 6.5 % (1.7-9.3); % Neutrophils 47.7 % (42.2-75.2); Absolute Basophils 0.1 10^3/uL (0-0.2); Absolute Eosinophils 0.2 10^3/uL (0-0.7); Absolute Immature Granulocytes 0.2 10^3/uL (0-0.05); Absolute Lymphocytes 3.8 10^3/uL (1.2-3.4); Absolute Monocytes 0.6 10^3/uL (0.1-0.6); Absolute Neutrophils 4.4 10^3/uL (1.4-6.5); Nucleated Red Blood Cells % 0 %
[2024-02-18 08:57] LABS: Hematocrit 37.7 % (37.0-47.0); Hemoglobin 12.4 g/dL (12.0-16.0); Mean Corp Hgb Conc. 32.9 g/dL (33.0-37.0); Mean Corpuscular Hgb 27.8 pg (27.0-31.0); Mean Corpuscular Volume 84.5 fL (81.0-99.0); Red Blood Cell Count 4.46 10^6/uL (4.20-5.40); Red Cell Dist. Width 13.2 % (11.5-14.5); White Blood Cell Count 9.1 10^3/uL (4.8-10.8)
== END ==
LOC: REG 08:04
PROVIDERS: ATTENDING PHYSICIAN Physician Assistant
DX: D72.829 Elevated white blood cell count, unspecified (principal)
CPT/HCPCS: 36415; 85025

== ENCOUNTER → 2024-02-22 12:59 | Outpatient (REF) | payer BC, SELFPAY ==
[2024-02-22 13:46] LABS: % Basophils 0.4 % (0-2); % Eosinophils 2.5 % (0-6); % Immature Granulocytes 0.7 % (0-0.5); % Lymphocytes 36.2 % (20.5-51.1); % Monocytes 8.3 % (1.7-9.3); % Neutrophils 51.9 % (42.2-75.2); Absolute Eosinophils 0.2 10^3/uL (0-0.7); Absolute Immature Granulocytes 0.1 10^3/uL (0-0.05); Absolute Lymphocytes 2.6 10^3/uL (1.2-3.4); Absolute Monocytes 0.6 10^3/uL (0.1-0.6); Absolute Neutrophils 3.7 10^3/uL (1.4-6.5); Hematocrit 33.2 % (37.0-47.0); Hemoglobin 10.9 g/dL (12.0-16.0); Mean Corp Hgb Conc. 32.8 g/dL (33.0-37.0); Mean Corpuscular Hgb 27.8 pg (27.0-31.0); Mean Corpuscular Volume 84.7 fL (81.0-99.0); Mean Platelet Volume 9.2 fL (7.4-10.4); Nucleated Red Blood Cells % 0 %; Platelet Count 267 10^3/uL (130-400); Red Blood Cell Count 3.92 10^6/uL (4.20-5.40); Red Cell Dist. Width 13.1 % (11.5-14.5); White Blood Cell Count 7.1 10^3/uL (4.8-10.8)
== END ==
LOC: REG 12:59
PROVIDERS: ATTENDING PHYSICIAN Physician Assistant
DX: D72.825 Bandemia (principal)
CPT/HCPCS: 36415; 85025

== ENCOUNTER → 2024-02-27 12:27 | Outpatient (REF) | payer BC, SELFPAY ==
[2024-02-27 13:21] LABS: % Basophils 0.6 % (0-2); % Eosinophils 2.7 % (0-6); % Immature Granulocytes 0.4 % (0-0.5); % Lymphocytes 33.2 % (20.5-51.1); % Monocytes 6.3 % (1.7-9.3); % Neutrophils 56.8 % (42.2-75.2); Absolute Eosinophils 0.2 10^3/uL (0-0.7); Absolute Lymphocytes 2.4 10^3/uL (1.2-3.4); Absolute Monocytes 0.5 10^3/uL (0.1-0.6); Hematocrit 34.5 % (37.0-47.0); Hemoglobin 11.4 g/dL (12.0-16.0); Mean Corpuscular Hgb 27.1 pg (27.0-31.0); Mean Corpuscular Volume 82.1 fL (81.0-99.0); Mean Platelet Volume 9.4 fL (7.4-10.4); Nucleated Red Blood Cells % 0 %; Platelet Count 297 10^3/uL (130-400); Red Cell Dist. Width 12.9 % (11.5-14.5); White Blood Cell Count 7.1 10^3/uL (4.8-10.8)
[2024-02-27 14:29] LABS: Ferritin 25.4 ng/ml (6.24-137)
[2024-02-28 16:31] LABS: Iron 150 ug/dl (37-170); Percent Saturation 49 % (20-50); Total Iron Binding Capacity 304 ug/dl (265-497)
== END ==
LOC: REG 12:27
PROVIDERS: ATTENDING PHYSICIAN Physician Assistant
DX: D72.820 Lymphocytosis (symptomatic) (principal); D64.9 Anemia, unspecified
CPT/HCPCS: 36415; 82728; 83540; 83550; 85025

== ENCOUNTER → 2024-06-06 11:31 | Outpatient (REF) | payer BC, SELFPAY | LOC: RAD 11:31 | PROVIDERS: FAMILY PHYSICIAN Family Medicine | DX: M53.2X2 Spinal instabilities, cervical region (principal) | CPT/HCPCS: 72050 ==

== ENCOUNTER → 2024-06-22 14:47 | Outpatient (REF) | payer BC, SELFPAY ==
[2024-06-22 15:50] LABS: % Basophils 0.4 % (0-2); % Eosinophils 0.5 % (0-6); % Immature Granulocytes 0.7 % (0-0.5); % Lymphocytes 19.1 % (20.5-51.1); % Neutrophils 76.3 % (42.2-75.2); Absolute Basophils 0.1 10^3/uL (0-0.2); Absolute Eosinophils 0.1 10^3/uL (0-0.7); Absolute Immature Granulocytes 0.1 10^3/uL (0-0.05); Absolute Lymphocytes 2.2 10^3/uL (1.2-3.4); Absolute Monocytes 0.3 10^3/uL (0.1-0.6); Absolute Neutrophils 8.8 10^3/uL (1.4-6.5); Hematocrit 39.4 % (37.0-47.0); Hemoglobin 12.8 g/dL (12.0-16.0); Mean Corp Hgb Conc. 32.5 g/dL (33.0-37.0); Mean Corpuscular Hgb 27.3 pg (27.0-31.0); Nucleated Red Blood Cells % 0 %; Red Blood Cell Count 4.69 10^6/uL (4.20-5.40); Red Cell Dist. Width 12.6 % (11.5-14.5); White Blood Cell Count 11.5 10^3/uL (4.8-10.8)
[2024-06-22 15:59] LABS: Mean Platelet Volume 10.3 fL (7.4-10.4); Platelet Count 224 10^3/uL (130-400)
[2024-06-22 18:15] LABS: ALT (SGPT) 15 U/L (0-35); AST (SGOT) 22 U/L (14-36); Albumin 4.9 g/dl (3.5-5.0); Alkaline Phosphatase 73 U/L (38-126); Blood Urea Nitrogen 11 mg/dl (7-17); Calcium 9.8 mg/dl (8.4-10.2); Carbon Dioxide 28 mmol/L (22-30); Chloride 97 mmol/L (98-107); Glucose 89 mg/dl (70-99); Potassium 4.8 mmol/L (3.5-5.1); Sodium 137 mmol/L (135-145); Total Bilirubin 0.3 mg/dl (0.2-1.3); Total Protein 7.8 g/dl (6.3-8.2); eGFR > 60.00
== END ==
LOC: REG 14:47
PROVIDERS: ATTENDING PHYSICIAN Physician Assistant
DX: Z01.818 Encounter for other preprocedural examination (principal); G93.5 Compression of brain
CPT/HCPCS: 36415; 80053; 85025

== ENCOUNTER → 2024-07-06 14:22 | Outpatient (REF) | payer BC, SELFPAY ==
[2024-07-06 15:24] LABS: % Basophils 0.3 % (0-2); % Eosinophils 0.2 % (0-6); % Immature Granulocytes 0.5 % (0-0.5); % Lymphocytes 16.9 % (20.5-51.1); % Monocytes 4.2 % (1.7-9.3); % Neutrophils 77.9 % (42.2-75.2); Absolute Immature Granulocytes 0.1 10^3/uL (0-0.05); Absolute Lymphocytes 1.7 10^3/uL (1.2-3.4); Absolute Monocytes 0.4 10^3/uL (0.1-0.6); Absolute Neutrophils 7.6 10^3/uL (1.4-6.5); Hematocrit 36.5 % (37.0-47.0); Mean Corp Hgb Conc. 32.9 g/dL (33.0-37.0); Mean Corpuscular Hgb 27.8 pg (27.0-31.0); Mean Corpuscular Volume 84.7 fL (81.0-99.0); Mean Platelet Volume 9.3 fL (7.4-10.4); Nucleated Red Blood Cells % 0 %; Platelet Count 326 10^3/uL (130-400); Red Blood Cell Count 4.31 10^6/uL (4.20-5.40); Red Cell Dist. Width 12.5 % (11.5-14.5); White Blood Cell Count 9.7 10^3/uL (4.8-10.8)
[2024-07-06 15:29] LABS: INR 0.88; PT 12.2 Sec (11.4-14.6)
== END ==
LOC: REG 14:22
PROVIDERS: FAMILY PHYSICIAN Family Medicine
DX: G93.5 Compression of brain (principal); Z01.812 Encounter for preprocedural laboratory examination
CPT/HCPCS: 36415; 85025; 85610; 85730

== ENCOUNTER → 2025-04-01 14:52 | Outpatient (REF) | payer BC, SELFPAY | LOC: RAD 14:52 | PROVIDERS: FAMILY PHYSICIAN Physician Assistant | DX: M54.2 Cervicalgia (principal); Z98.1 Arthrodesis status | CPT/HCPCS: 72040 ==

== ENCOUNTER → 2025-04-10 13:18 | Outpatient (REF) | payer BC, SELFPAY | LOC: HWRAD 13:18 | PROVIDERS: ATTENDING PHYSICIAN Physician Assistant Surgical; FAMILY PHYSICIAN Physician Assistant | DX: Z98.1 Arthrodesis status (principal); M54.2 Cervicalgia | CPT/HCPCS: 72125 ==

== ENCOUNTER → 2025-05-27 15:37 | Outpatient (REF) | payer BC, SELFPAY | LOC: RAD 15:37 | DX: G95.89 Other specified diseases of spinal cord (principal) | CPT/HCPCS: 72110 ==